=== PATIENT | female | born 1990 | race African-American/Black ===

== ENCOUNTER 2021-09-28 17:57 | Inpatient (IN) | payer BC ==
[~2021-09-28] VITALS: Ht 170.2 cm; Wt 52.2 kg
--- NOTE | 2021-09-28 18:15 | NUR ---
C/O STOMACHACHE, NAUSEA, VOMITING AT 1745 30 MINS AFTER EATING CHICKEN BURGER. PT VITALS WITHIN NORMAL LIMITS. BREATHING IS EVEN AND UNLABORED. PT FIANCE IS AT BEDSIDE. PT ATTCHED TO MONITOR.
--- NOTE | 2021-09-28 18:22 | NUR ---
PA AT BEDSIDE
--- NOTE | 2021-09-28 18:26 | NUR ---
IV ESTABLISH 20G R AC. LABS DRAWN AND COLLECTED.
[2021-09-28] MEDS ORDERED: ONDANSETRON HCL/PF 4 MG/2 ML VIAL ONE ×3 (18:33→23:43)
[2021-09-28] MEDS ORDERED: MORPHINE SULFATE INJ 4 MG/ML DISP.SYRIN ONE (18:43)
[2021-09-28] MEDS ORDERED: ONDANSETRON HCL/PF 4 MG/2 ML VIAL IVP ONE ×2 (19:00→23:30)
[2021-09-28] MEDS ORDERED: MORPHINE SULFATE INJ 2 MG/ML DISP.SYRIN IV ONE ×2 (19:00→23:30)
[2021-09-28] MEDS ORDERED: IV NS 0.9% 1,000 ML BAG IV ONE ×2 (19:00→21:30)
--- NOTE | 2021-09-28 19:04 | NUR ---
US TECH AT PT'S BEDSIDE
[2021-09-28 19:19] LABS: BASOPHILS % (AUTO) 0.3 % (0.0-2.0); EOSINOPHILS % (AUTO) 1.2 % (0.0-6.0); HEMATOCRIT 42 % (33-45); HEMOGLOBIN 13.2 g/dL (11.5-14.8); LYMPHOCYTES # (AUTO) 3.4 K/uL (0.8-4.8); LYMPHOCYTES % (AUTO) 29.5 % (20.0-44.0); MEAN CORPUSCULAR HGB CONC 32 g/dl (31.0-36.0); MEAN CORPUSCULAR VOLUME 94 fL (82-100); MONOCYTES # (AUTO) 0.6 K/uL (0.1-1.30); MONOCYTES % (AUTO) 5.1 % (2.0-12.0); NEUTROPHILS # (AUTO) 7.4 K/uL (1.8-8.9); NEUTROPHILS % (AUTO) 63.9 % (43.0-81.0); PLATELET COUNT (AUTO) 250 K/uL (150-450); RED BLOOD CELL COUNT(AUTO) 4.41 MIL/uL (4.0-5.2); WHITE BLOOD COUNT (AUTO) 11.6 K/uL (4.3-11.0)
[2021-09-28] MEDS ORDERED: HYDROMORPHONE INJ 2 MG/ML DISP.SYRIN IV ONE (19:30)
[2021-09-28] MEDS ORDERED: PROCHLORPERAZINE EDISYLATE 10 MG/2 ML VIAL IVP ONE (19:30)
[2021-09-28 19:31] LABS: ALBUMIN 4.3 g/dL (3.4-5.0); BILIRUBIN,DIRECT 0.1 mg/dL (0.0-0.2); BILIRUBIN,TOTAL 0.4 mg/dL (0.2-1.0); CALCIUM, SERUM 8.9 mg/dL (8.5-10.1); CREATININE 0.7 mg/dL (0.6-1.3); POTASSIUM 3.2 mmol/L (3.5-5.1); TOTAL PROTEIN, SERUM 7.7 g/dL (6.4-8.2)
[2021-09-28] MEDS ORDERED: PROCHLORPERAZINE EDISYLATE 10 MG/2 ML VIAL ONE (19:41)
[2021-09-28] MEDS ORDERED: HYDROMORPHONE 1 MG/1 ML DISP.SYRIN ONE ×2 (19:42→19:54)
--- NOTE | 2021-09-28 20:37 | NUR ---
US TECH AT PT'S BEDSIDE
[2021-09-28] MEDS ORDERED: diphenhydrAMINE HCL 50 MG/ML VIAL IV ONE (21:30)
[2021-09-28] MEDS ORDERED: METOCLOPRAMIDE HCL 10 MG/2 ML VIAL IV ONE (21:30)
[2021-09-28] MEDS ORDERED: METOCLOPRAMIDE HCL 10 MG/2 ML VIAL ONE (21:34)
[2021-09-28] MEDS ORDERED: diphenhydrAMINE HCL 50 MG/ML VIAL ONE (21:35)
[2021-09-28] MEDS ORDERED: ONDA4TAB11 PO (22:25)
[2021-09-28] MEDS ORDERED: POTASSIUM CHLORIDE 20 MEQ TAB.PRT.SR PO ONE ×2 (22:30→22:53)
[2021-09-28] MEDS ORDERED: KETOROLAC TROMETHAMINE INJ 30 MG/ML VIAL IV ONE (22:30)
[2021-09-28] MEDS ORDERED: KETOROLAC TROMETHAMINE 15 MG/ML VIAL ONE (22:53)
[2021-09-28] MEDS ORDERED: ONDANSETRON 4 MG TAB.RAPDIS ONE (23:21)
[2021-09-28 23:30] LABS: BILIRUBIN,URINE NEGATIVE (NEGATIVE); COLOR,URINE YELLOW (YELLOW); LEUKOCYTE ESTERASE ,URINE NEGATIVE (NEGATIVE); NITRITE, URINE NEGATIVE (NEGATIVE); PH,URINE 6.5 (5.0-8.0); PROTEIN,URINE NEGATIVE (NEGATIVE); UGLUCOSE NEGATIVE (NEGATIVE); UROBILINOGEN,URINE 0.2 EU/dL (0.2)
[2021-09-28] MEDS ORDERED: ONDANSETRON 4 MG TAB.RAPDIS SL ONE (23:30)
[2021-09-28] MEDS ORDERED: ONDANSETRON HCL 4 MG/5 ML SOLUTION PO ONE (23:30)
[2021-09-28] MEDS ORDERED: MORPHINE SULFATE INJ 2 MG/ML DISP.SYRIN ONE ×2 (23:40→23:43)
[2021-09-28 23:47] LABS: BACTERIA,URINE Rare /HPF (None Seen); SQUAMOUS EPITHELIAL CELL,UR Few /HPF (None Seen); WBC,URINE NONE SEEN /HPF (0-3)
--- NOTE | 2021-09-28 23:55 | NUR ---
LAC #20G S/L; PATENT AND INTACT.
--- NOTE | 2021-09-28 23:59 | NUR ---
COVID ANTIGEN COLLECTED AND SENT TO LAB
[2021-09-29] MEDS ORDERED: MAG HYDROX/AL HYDROX/SIMETH 30 ML UDC PO PRN (01:30)
[2021-09-29] MEDS ORDERED: CALCIUM CARBONATE 500 MG TAB.CHEW PO ONE (01:30)
[2021-09-29] MEDS ORDERED: MAGNESIUM HYDROXIDE 30 ML UDC PO PRN (01:30)
[2021-09-29] MEDS ORDERED: ACETAMINOPHEN 325 MG TABLET PO PRN (01:30)
[2021-09-29] MEDS ORDERED: Z GUARD REMEDY 2 OZ OINT TP PRN (01:30)
[2021-09-29] MEDS ORDERED: IV D5W 1,000 ML IV PRN (01:30)
--- NOTE | 2021-09-29 02:06 | NUR ---
REPORT GIVEN TO KINGA
--- NOTE | 2021-09-29 02:40 | NUR ---
PT TRANSFERRED TO [facility]2 VIA GURNEY IN STABLE CONDITION.
--- NOTE | 2021-09-29 02:50 | NUR ---
MS/RN ADMITTING NOTE RECEIVED REPORT FROM CORE STRIPPER TORI. PATIENT ARRIVED TO UNIT VIA GURNEY AND 2 STAFF MEMBERS. PATIENT IS BEING ADMITTED WITH INTRACTABLE NAUSEA AND VOMITING. NO PAST MEDICAL HISTORY NOTED. PATIENT IS ALERT AND ORIENTED X 4. ABLE TO MAKE NEEDS KNOWN. C/O ABDOMINAL PAIN - WILL ADMINISTER PRN PAIN MEDS PER MD ORDERS. CONTINUES ON ROOM AIR WITH NO S/SX OF RESPIRATORY DISTRESS NOTED. IV ACCESS TO LEFT AC #20G INTACT, PATENT AND SALINE LOCKED. CONTINUES ON NPO EXCEPT MEDS. PATIENT AWARE AND AGREEABLE. PATIENT FULLY VACCINATED FOR COVID19. AMBULATORY WITH STEADY GAIT. SKIN CHECK PERFORMED WITH NO SKIN ISSUES NOTED. ORIENTED PATIENT TO ROOM, CALL LIGHT AND UNIT. CALL LIGHT WITHIN REACH. ASPIRATION, FALL AND SAFETY PRECAUTIONS MAINTAINED. WILL CONTINUE TO MONITOR.
[2021-09-29] MEDS: MORPHINE SULFATE INJ 2 MG/ML DISP.SYRIN IV PRN ×4 (03:03→16:17)
[2021-09-29] MEDS: PANTOPRAZOLE 40 MG VIAL IV SCH ×2 (03:03→08:17)
[2021-09-29 03:30] VITALS: BP 111/50
[2021-09-29 03:45] VITALS: BP 111/50
[2021-09-29] MEDS: SUCRALFATE 1 G/10 ML UDC PO SCH ×3 (06:00→11:53)
--- NOTE | 2021-09-29 06:00 | NUR ---
MS/RN NOTE PATIENT REFUSING CARAFATE AT THIS TIME. STATES SHE IS UNABLE TO TAKE ANYTHING BY MOUTH DUE TO NAUSEA. WILL CONTINUE TO MONITOR.
[2021-09-29] MEDS: ONDANSETRON HCL/PF 4 MG/2 ML VIAL IVP PRN ×3 (06:45→16:17)
--- NOTE | 2021-09-29 06:50 | NUR ---
MS/RN CLOSING NOTE PATIENT CURRENTLY RESTING IN BED. AWAKE, ALERT AND ORIENTED X 4. ABLE TO MAKE NEEDS KNOWN. DENIES PAIN AT THIS TIME. CONTINUES ON ROOM AIR WITH NO S/SX OF RESPIRATORY DISTRESS NOTED. IV ACCESS TO LEFT AC #20G INTACT AND PATENT. CONTINUES ON IVF D5W @ 75ML/HR. DENIES NAUSEA AT THIS TIME. CONTINUES ON NPO EXCEPT MEDS. PATIENT IS AMBULATORY WITH STEADY GAIT. CALL LIGHT WITHIN REACH. ASPIRATION, FALL AND SAFETY PRECAUTIONS MAINTAINED. WILL ENDORSE PLAN OF CARE TO ONCOMING SHIFT.
--- NOTE | 2021-09-29 07:33 | NUR ---
RN OPENING NOTES Patient seen comfortably lying in bed, no apparent distress noted, respirations even and unlabored, no SOB, denies any pain or discomfort at this time, no grimacing. Call light left within reach, safety precautions in place, brakes locked, side rails up X 2, will monitor closely for any changes.
[2021-09-29 08:00] VITALS: BP 105/59
--- NOTE | 2021-09-29 16:40 | NUR ---
Patient to be discharged home today, no apparent distress noted, no shortness of breath, respirations even and unlabored, pain medication given per MD order as needed when non pharmacological measures ineffective. Abdominal bowel sounds present in all quadrants, no grimacing when abdomen palpated, no nausea, no vomiting at this time. Patient made aware of the situation, she signed all discharge paper works, all belongings taken, inventory list signed by patient. Health teaching provided, verbalized understanding and gratitude. Reminded resident to hot die picker new prescriptions at preferred pharmacy. Skin assessment done prior to discharge, skin intact, warm to touch, no pallor or cyanosis noted. Peripheral IV line removed prior to discharge, complete and intact, no excessive bleeding noted, site covered with dry dressing. Name wristband removed prior to discharge, surgical mask provided for patient to use. RN assisted patient going to the hospital parking lot via wheelchair, left unit at 1640pm with fiancee, stable condition, exit care documents handed to patient.
== END 2021-09-29 16:40 | disposition home or self-care (01) | DRG 392 ==
LOC: ER 17:59 → MED 09-29 01:07 → UNDOADMIN 09-29 01:07 → MED 09-29 02:23
PROVIDERS: ADMIT Registered Nurse
DX: A05.9 Bacterial foodborne intoxication, unspecified (principal); Z20.822 Contact with and (suspected) exposure to COVID-19; F12.90 Cannabis use, unspecified, uncomplicated; Z82.49 Family history of ischemic heart disease and other diseases of the circulatory system; Z90.721 Acquired absence of ovaries, unilateral; Z87.42 Personal history of other diseases of the female genital tract
CPT/HCPCS: 36415; 76705-TC; 80048-TC; 80076-TC; 81001; 83690-TC; 84703-TC; 85025-TC; 87081-TC; C9113; C9803; G0378; J0780; J1170; J1200; J1885; J2270; J2405; J2765; J7030; J7070; Q0162